=== PATIENT | male | born 1945 | race Caucasian/White ===

== ENCOUNTER 2019-11-02 23:42 | Inpatient (IN) | payer MEDICARE ==
[~2019-11-02] VITALS: Ht 190.5 cm; Wt 118.7 kg
[2019-11-02 23:43] VITALS: BP 121/101
[2019-11-03 00:53] LABS: BE -17.1 mmol/L (-2 to +3); PCO2 32.4 mmHg (35.0-45.0)
[2019-11-03 00:59] LABS: PO2 176.1 mmHg (75.0-100.0)
[2019-11-03] MEDS ORDERED: ASA81BEC PO (01:37)
[2019-11-03] MEDS ORDERED: BUPROPION XL300 MG PO (01:38)
[2019-11-03] MEDS ORDERED: CHILDREN'S ZYRT10 M1 PO (01:38)
[2019-11-03] MEDS ORDERED: ZESTRIL40 MG PO (01:39)
[2019-11-03] MEDS ORDERED: METFORMIN HCL500 M3 PO (01:39)
[2019-11-03] MEDS ORDERED: FLONASE 0.05%50 MCG NARES (01:39)
[2019-11-03] MEDS ORDERED: DRIZALMA SPRINK60 MG PO (01:39)
[2019-11-03] MEDS ORDERED: NEXIUM40 MG PO (01:39)
[2019-11-03 01:40] LABS: HEMATOCRIT 48.7 % (42.0-52.0); HEMOGLOBIN 15.8 gm/dL (14.0-18.0); MCH 30.7 pg (26.0-34.0); MCHC 32.4 g/dL (28.0-37.0); NUCLEATED RBCS 0 /100WBC; PLATELET COUNT* 401 thou/uL (150-400); RBC 5.13 mil/uL (4.50-6.00); RDW-CV 13.5 % (10.5-14.5); WBC 20.2 thou/uL (4.0-11.0)
[2019-11-03] MEDS ORDERED: TOPROL XL100 MG PO (01:40)
[2019-11-03] MEDS ORDERED: PROCARDIA XL30 MG PO (01:40)
[2019-11-03] MEDS ORDERED: SIMVASTATIN80 MG PO (01:41)
[2019-11-03] MEDS ORDERED: TIZANIDINE HCL4 M1 PO (01:41)
[2019-11-03] MEDS ORDERED: PHENERGAN 25 MG25 M1 PO (01:41)
[2019-11-03] MEDS ORDERED: AZO BLADDER CO300 MG PO (01:42)
[2019-11-03] MEDS ORDERED: PROBIOTIC1 EAC7 PO (01:42)
[2019-11-03] MEDS ORDERED: DULCOLAX STOOL100 M1 PO (01:43)
[2019-11-03] MEDS ORDERED: CENTRUM MEN'S1 EACH PO (01:43)
[2019-11-03] MEDS ORDERED: GLUCOSAMINE1000 MG PO (01:43)
[2019-11-03 01:44] LABS: CALCIUM 7.6 mg/dL (8.5-10.1); CREATININE 2.5 mg/dL (0.6-1.3); POTASSIUM 5.1 mmol/L (3.5-5.1)
[2019-11-03 01:55] LABS: ALBUMIN 3.1 g/dL (3.4-5.0); INR 1.2; PROTIME 11.9 Seconds (9.20-11.50); TOTAL PROTEIN 6.5 g/dL (6.4-8.2)
[2019-11-03 04:36] LABS: BE -17.2 mmol/L (-2 to +3); PCO2 26.2 mmHg (35.0-45.0); PO2 77.6 mmHg (75.0-100.0)
[2019-11-03 04:41] LABS: pH 7.176 (7.340-7.450)
[2019-11-03 05:18] LABS: ABSOLUTE BASOPHILS 0.2 thou/uL (0.0-0.2); ABSOLUTE LYMPHOCYTES 2.8 thou/uL (0.8-5.3); ABSOLUTE MONOCYTES 0.8 thou/uL (0.0-1.2); ABSOLUTE NEUTROPHILS 16.4 thou/uL (1.6-8.1); LARGE PLATELETS RARE; PLATELET ESTIMATE ADEQUATE
[2019-11-03 06:00] VITALS: BP 100/73; BP 119/93
[2019-11-03 06:07] LABS: CREATININE 3.1 mg/dL (0.6-1.3); POTASSIUM 5.7 mmol/L (3.5-5.1)
[2019-11-03 06:14] LABS: INFLUENZA A ANTIGEN Negative (Negative); INFLUENZA B ANTIGEN Negative (Negative)
[2019-11-03 06:30] VITALS: BP 119/93
[2019-11-03 06:40] LABS: URINE BILIRUBIN NEGATIVE (Negative); URINE BLOOD NEGATIVE (Negative); URINE CLARITY CLEAR; URINE COLOR YELLOW; URINE GLUCOSE-RANDOM NEGATIVE (Negative); URINE KETONES NEGATIVE (Negative); URINE LEUKOCYTES NEGATIVE (Negative); URINE NITRITE NEGATIVE (Negative); URINE PROTEIN NEGATIVE (Negative); URINE UROBILINOGEN 0.2 E.U./dl (0.2-1.0)
--- NOTE | 2019-11-03 07:00 | NUR ---
PROGRESSING TOWARDS GOALS, AWAKE, ALERT AND CONVERSATIVE THIS AM, RESTING QUIELTY WITH EYES CLOSED MOST OF NOC, UP TO BSC WITH X1 ASSIST, NO BM THIS SHIFT, C/O NAUSEA WITHOUT EMESIS, ZOFRAN GIVEN X2 IVP PER ORDER AND PT REQUEST, PT REPORTS ZOFRAN SOMEWHAT HELPFUL BUT "ALWAYS FEELS NAUSEATED" DENIES PAIN, RA, SAO2 95%, CALL LIGHT IN REACH, SPOKE WITH VIA TELEPHONE THIS AM, UPDATED ON POC, SAFETY MAINTAINED.
--- NOTE | 2019-11-03 07:17 | NUR ---
PT ADMITTED TO ICU AT 0550. PT CONFUSED AND IMPULSIVE ATTEMPTING TO CLIMB OUT OF BED AND PULL IV LINES AND MONITORING EQUIPMENT OFF. PT'S AT BEDSIDE TO PROVIDE HEALTH HISTORY AND ASSIST KEEPING PT IN BED. DURING SHIFT CHANGE REPORT PT BECAME BRADYCARDIC WITH AGONAL RESPIRATIONS. CODE BLUE CALLED, CPR STARTED. CODE IN PROGRESS AT THIS TIME.
--- NOTE | 2019-11-03 07:21 | NUR ---
PT INTUBATED AT THIS TIME WITH 7.5 ET TUBE, CODE BLUE STILL IN PROGRESS.
--- NOTE | 2019-11-03 08:50 | NUR ---
0727 CODE BLUE STOPPED. PRNOUNCED BY DR GALEANO. FAMILY PRESENT. SEE CODE BLUE SUMMARY
--- NOTE | 2019-11-03 08:51 | NUR ---
FAMILY SPOKE TO DR CARRANZA AND WISHES AUTOPSY. ORDERED BY DR CARRANZA AND NURSING ORGANIZATIONAL EFFECTIVENESS CONSULTANT NOTIFIED. ALL TUBES AND LINES INTACT. FAMILY LEFT TO GO HOME. NO PATIENT BELONGINGS WITH PATIENT.
--- NOTE | 2019-11-03 11:01 | EKG ---
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
--- NOTE | 2019-11-03 11:01 | EKG ---
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: [place] : 1945 Requested By: Annie Enciso Order Number: [id number] MD: Etienne Fofana Measurements Intervals [place] Rate: 97 P: 48 MD: 179 QRS: -67 QRSD: 118 T: 65 QT: 356 QTc: 452 Interpretive Statements Sinus rhythm Atypical left bundle-branch block No previous ECG available for comparison Electronically Signed On 11-03-2019 11:00:09 CDT by Etienne Fofana [email or web address] <ELECTRONICALLY SIGNED> By: Etienne Fofana MD, [facility] 11/03/19 1100 2349 2349 Etienne Fofana MD, [facility] /EPI
--- NOTE | 2019-11-03 12:40 | NUR ---
1125 medical logistics specialist declines case.
--- NOTE | 2019-11-03 12:40 | NUR ---
FAMILY DECLINES PRIVATE AUTOPSY. TUBES AND LINES REMOVED. CALL PLACED TO HOME. SECURITY NOTIFIED.
== END 2019-11-03 07:27 | DRG 871 ==
LOC: M.ERS 23:42 → M.ICU 11-03 04:19 → M.TBA-ER 11-03 04:19 → M.ICU 11-03 05:40
PROVIDERS: Emergency Medicine; ADMIT Internal Medicine
PROC: 06HY33Z Insertion of Infusion Device into Lower Vein, Percutaneous Approach (ICD-10-PCS; principal; 2019-11-03)
PROC: B54CZZA Ultrasonography of Left Lower Extremity Veins, Guidance (ICD-10-PCS; 2019-11-03)
DX: A41.9 Sepsis, unspecified organism (principal); G93.41 Metabolic encephalopathy; I26.99 Other pulmonary embolism without acute cor pulmonale; J96.00 Acute respiratory failure, unspecified whether with hypoxia or hypercapnia; J18.9 Pneumonia, unspecified organism; N17.0 Acute kidney failure with tubular necrosis; R57.9 Shock, unspecified; I10 Essential (primary) hypertension; T68.XXXA Hypothermia, initial encounter; E16.2 Hypoglycemia, unspecified; I46.9 Cardiac arrest, cause unspecified; Z79.899 Other long term (current) drug therapy; Z79.82 Long term (current) use of aspirin; Z79.84 Long term (current) use of oral hypoglycemic drugs; Z91.09 Other allergy status, other than to drugs and biological substances